=== PATIENT | male | born 1950 | race African-American/Black ===

== ENCOUNTER 2023-08-28 15:07 | Outpatient (CLI) | payer MEDICARE | END 2023-08-28 15:08 | disposition home or self-care (01) | LOC: BICCT 15:07 | PROVIDERS: ATTEND Student in an Organized Health Care Education/Training Program | DX: Z12.2 Encounter for screening for malignant neoplasm of respiratory organs (principal); F17.210 Nicotine dependence, cigarettes, uncomplicated | CPT/HCPCS: 71271 ==